=== PATIENT | female | born 1995 | race Caucasian/White ===

== ENCOUNTER 2018-01-19 11:33 | Inpatient (IN) | payer OTHER ==
[2018-01-19] MEDS ORDERED: OXYTOCIN 30 UNITS/LR 500 ML IV (13:30)
[2018-01-19] MEDS ORDERED: CARBOPROST 250 MCG INJ IM (13:30)
[2018-01-19] MEDS ORDERED: IBUPROFEN 600 MG TAB PO (13:30)
[2018-01-19] MEDS ORDERED: MISOPROSTOL 200 MCG TAB PR (13:30)
[2018-01-19] MEDS ORDERED: LIDOCAINE 1% (MPF) 30 ML INJ INJ (13:30)
[2018-01-19 13:42] LABS: ADD MAN DIFF? NO
[2018-01-19 13:46] LABS: WHITE BLOOD COUNT 10.3 10^3/ul (4.8-10.8)
[2018-01-19 13:46] LABS: BASOPHIL # 0.1 10^3/ul (0.0-0.1); BASOPHILS % 0.5 % (0.0-2.0); EOSINOPHILS # 0.1 10^3/ul (0.0-0.5); HEMATOCRIT 35.7 % (37.0-47.0); HEMOGLOBIN 11.6 g/dl (12.0-16.0); LYMPHOCYTES # 2.1 10^3/ul (0.8-2.9); LYMPHOCYTES % 20.2 % (15.0-51.0); MEAN CORPUSCULAR HEMOGLOBIN 27.2 pg (29.0-33.0); MEAN CORPUSCULAR HGB CONC 32.5 g/dl (32.0-37.0); MEAN CORPUSCULAR VOLUME 83.8 fl (82.0-101.0); MONOCYTE # 0.7 10^3/ul (0.3-0.9); MONOCYTES % 7.2 % (0.0-11.0); NEUTROPHIL # 7.1 10^3/ul (1.6-7.5); NEUTROPHILS % 69.3 % (39.0-77.0); PLATELET COUNT 246 10^3/UL (140-415); RED BLOOD COUNT 4.26 10^6/ul (4.20-5.40); RED CELL DISTRIBUTION WIDTH 14.2 % (11.5-14.5)
[2018-01-19] MEDS: LACTATED RINGER'S 1,000 ML IV* ×2 (13:56→22:01)
[2018-01-19 14:10] LABS: INR 0.87; PROTIME 11.9 Sec (11.9-14.9); PT RATIO 0.9
[2018-01-19 14:11] LABS: PARTIAL THROMBOPLASTIN TIME 28.1 Sec (23.0-35.0)
[2018-01-19] MEDS: MISOPROSTOL 50 MCG CAPSULE PO ×2 (16:16→20:08)
[2018-01-19 16:17] LABS: RAPID PLASMA REAGIN NONREACTIVE (NR)
[2018-01-19 17:01] LABS: AMPHETAMINE/METHAMPHETAMINE Negative (NEGATIVE); BARBITURATES Negative (NEGATIVE); BENZODIAZEPINES Negative (NEGATIVE); CANNABINOIDS Negative (NEGATIVE); COCAINE Negative (NEGATIVE); OPIATES Negative (NEGATIVE)
[2018-01-19] MEDS ORDERED: ALBUTEROL HFA 8 GM INHALER INH (20:00)
[2018-01-20] MEDS ORDERED: FENTAnyl 2MCG/ML-ROPIV 0.2% 100 ML (00:50)
[2018-01-20] MEDS: MISOPROSTOL 50 MCG CAPSULE PO (01:00)
[2018-01-20] MEDS ORDERED: LIDOCAINE 0.5% (SDV) 50 ML INJ (01:03)
[2018-01-20] MEDS: OXYTOCIN 30 UNITS/LR 500 ML IV ×3 (01:14→05:59)
[2018-01-20] MEDS: METHYLERGONOVINE 0.2 MG INJ IM (01:18)
[2018-01-20] MEDS ORDERED: NALOXONE (0.4 MG/ML) INJ IV (01:30)
[2018-01-20] MEDS ORDERED: FENTAnyl 2MCG/ML-ROPIV 0.2% 100 ML BAG EPI (01:30)
[2018-01-20] MEDS: DEXTROSE 5%-LR 1,000 ML IV (01:39)
[2018-01-20] MEDS: LACTATED RINGER'S 1,000 ML IV* (01:39)
[2018-01-20] MEDS ORDERED: ZOLPIDEM 5 MG TAB PO (02:00)
[2018-01-20] MEDS ORDERED: DIBUCAINE 1% 30 GM OINT PR (02:00)
[2018-01-20] MEDS ORDERED: MISOPROSTOL 200 MCG TAB PR (02:00)
[2018-01-20] MEDS ORDERED: OXYCODONE/ASPIRIN (4.88/325) TAB PO (02:00)
[2018-01-20] MEDS ORDERED: METHYLERGONOVINE 0.2 MG INJ IM (02:00)
[2018-01-20] MEDS ORDERED: ONDANSETRON 4 MG INJ IV (02:00)
[2018-01-20] MEDS ORDERED: DIPHENHYDRAMINE 50 MG INJ IV (02:00)
[2018-01-20] MEDS ORDERED: ACETAMINOPHEN 325 MG TAB PO (02:00)
[2018-01-20] MEDS ORDERED: CARBOPROST 250 MCG INJ IM (02:00)
[2018-01-20] MEDS ORDERED: IBUPROFEN 600 MG TAB (04:17)
[2018-01-20] MEDS: LANOLIN 7 GM TUBE TOP (04:22)
[2018-01-20] MEDS: IBUPROFEN 600 MG TAB PO ×3 (04:22→18:17)
[2018-01-20] MEDS: WITCH HAZEL/GLYCERIN PAD PR (04:22)
[2018-01-20] MEDS: BENZOCAINE 20% 56 ML SPRAY TOP (04:22)
[2018-01-20] MEDS: SENNA/DOCUSATE NA (8.6MG/50MG) TAB PO (20:13)
[2018-01-21] MEDS: IBUPROFEN 600 MG TAB PO ×4 (00:17→17:27)
[2018-01-21 08:45] LABS: ADD MAN DIFF? NO
[2018-01-21 08:50] LABS: WHITE BLOOD COUNT 12.2 10^3/ul (4.8-10.8)
[2018-01-21 08:50] LABS: BASOPHILS % 0.3 % (0.0-2.0); EOSINOPHILS # 0.2 10^3/ul (0.0-0.5); EOSINOPHILS % 1.3 % (0.0-7.0); HEMATOCRIT 33.6 % (37.0-47.0); HEMOGLOBIN 10.8 g/dl (12.0-16.0); LYMPHOCYTES # 3.3 10^3/ul (0.8-2.9); LYMPHOCYTES % 27.2 % (15.0-51.0); MEAN CORPUSCULAR HEMOGLOBIN 27.4 pg (29.0-33.0); MEAN CORPUSCULAR HGB CONC 32.1 g/dl (32.0-37.0); MEAN CORPUSCULAR VOLUME 85.3 fl (82.0-101.0); MEAN PLATELET VOLUME 12.1 fl (7.4-10.4); MONOCYTE # 0.9 10^3/ul (0.3-0.9); MONOCYTES % 7.2 % (0.0-11.0); NEUTROPHIL # 7.6 10^3/ul (1.6-7.5); NEUTROPHILS % 62.4 % (39.0-77.0); PLATELET COUNT 224 10^3/UL (140-415); RED BLOOD COUNT 3.94 10^6/ul (4.20-5.40); RED CELL DISTRIBUTION WIDTH 14.4 % (11.5-14.5)
[2018-01-21] MEDS: SENNA/DOCUSATE NA (8.6MG/50MG) TAB PO (21:39)
[2018-01-22] MEDS: IBUPROFEN 600 MG TAB PO ×3 (00:40→12:26)
[2018-01-22] MEDS: MEASLES,MUMPS,RUBELLA VACCINE INJ SC* (09:16)
[2018-01-22] MEDS: LANOLIN 7 GM TUBE TOP (12:27)
[2018-01-22] MEDS: DIPHTH/TET/ACEL PERTUSS (ADULT) 0.5 ML VIAL IM* (12:28)
== END 2018-01-22 16:25 | disposition home or self-care (01) | DRG 807 ==
LOC: PP1 01-20 03:21 → L-D 11:33
PROVIDERS: Obstetrics & Gynecology
PROC: 10E0XZZ Delivery of Products of Conception, External Approach (ICD-10-PCS; principal; 2018-01-20)
PROC: 3E033VJ Introduction of Other Hormone into Peripheral Vein, Percutaneous Approach (ICD-10-PCS; 2018-01-20)
DX: O48.0 Post-term pregnancy (principal); O69.81X0 Labor and delivery complicated by cord around neck, without compression, not applicable or unspecified; Z37.0 Single live birth; Z3A.40 40 weeks gestation of pregnancy
CPT/HCPCS: 62319; 76815; 80307; 85025; 85610; 85730; 86592; 86850; 86900; 86901; 90686; 90715